=== PATIENT | female | born 2000 | race Caucasian/White ===

== ENCOUNTER → 2022-09-08 | Outpatient (CLI) | payer BC ==
--- NOTE | 2022-09-28 19:06 | P.CEMON ---
7 day event monitor shows Sinus mechanism with IL interval of the upper limits of normal Sinus tachycardia with heart rates up to 170 beats a minute Patient complained of a variety of symptoms including palpitations dizziness chest pain and lightheadedness No arrhythmias noted
== END | disposition home or self-care (01) ==
LOC: RADECHMAIN 07:55
PROVIDERS: ATTEND Family Medicine
DX: R00.0 Tachycardia, unspecified (principal); R00.2 Palpitations; R42 Dizziness and giddiness; R07.9 Chest pain, unspecified
CPT/HCPCS: 93270

== ENCOUNTER → 2022-11-24 | Outpatient (CLI) | payer OTHER ==
[2022-11-24 21:46] LABS: Basophils # (A) 0.01 X 10*3/uL (0.00-0.10); Basophils % (A) 0.2 %; Eosinophils # (A) 0.11 X 10*3/uL (0.04-0.35); Eosinophils % (A) 1.8 %; HCT 43.8 % (37.2-46.3); HGB 14.6 d/dL (12.0-15.0); Lymphocytes # (A) 1.34 X 10*3/uL (0.90-5.00); Lymphocytes % (A) 21.5 %; MCH 31.3 pg (27.0-32.0); MCHC 33.3 d/dL (32.0-37.0); MCV 93.8 FL (80.0-97.0); Mean Platelet Volume 11.1 FL (9.5-12.2); Monocytes # (A) 0.37 X 10*3/uL (0.20-1.00); Monocytes % (A) 5.9 %; NRBC Per 100 WBC 0 X 10*3/uL (0.00-0.01); Neutrophils # (A) 4.37 X 10*3/uL (1.80-7.70); Neutrophils % (A) 70.3 %; Platelet Count 208 X 10*3/uL (140-440); RBC 4.67 X 10*6/uL (4.10-5.20); RDW 11.7 % (11.5-14.5); WBC 6.22 X 10*3/uL (4.50-10.00)
[2022-11-24 22:14] LABS: ALT 12 U/L (8-44); AST 15 U/L (13-35); Albumin 4.9 d/dL (3.8-4.9); Albumin/Globulin Ratio 2.13 Ratio (1.60-3.17); Alkaline Phosphatase 51 U/L (41-126); BUN/Creat Ratio 19.14 Ratio (12.00-20.00); Blood Urea Nitrogen 13.4 mg/dL (9.0-27.0); Calcium 9.7 mg/dL (8.7-10.3); Carbon Dioxide 24.9 mmol/L (21.6-31.8); Chloride 103 mmol/L (96-109); Chol/HDL Ratio 3.03 Ratio; Globulin 2.3 d/dL (1.6-3.3); Glucose 88 mg/dL (70-110); LDL Cholesterol,Calculated 86.1 mg/dL (0.0-131.0); Potassium 4.1 mmol/L (3.5-5.5); Rheumatoid Factor, Qnt <15 IU/mL (0-15); Sodium 140 mmol/L (135-145); T4, Free (Free Thyroxine) 1.53 ng/dL (0.80-1.80); Total Bilirubin 0.3 mg/dL (0.3-1.2); Total Protein 7.2 d/dL (6.2-8.2); VLDL Calculation 19.04 mg/dL (5.00-40.00)
[2022-11-24 22:49] LABS: Erythrocyte Sedimentation Rate 6 mm/Hr (0-20)
[2022-11-25 01:00] LABS: Anti-DNA, DS unit <1.0 IU/mL; Anti-Smith Ab Interp Negative (Negative); DNA Double-Stranded Negative (Negative); Gliadin AB IgG, Deaminated Negative (Negative); Gliadin AB IgG, Unit <0.4 U/mL
[2022-11-25 01:30] LABS: Cyclic Citrull Pep IgG Unit <1.5 U/mL (<=3.9); Cyclic Citrullinated Pep IgG Negative
== END | disposition home or self-care (01) ==
LOC: LABWHC1 11:48
PROVIDERS: ATTEND Internal Medicine
DX: Z13.220 Encounter for screening for lipoid disorders (principal); I95.89 Other hypotension; M25.50 Pain in unspecified joint; R19.4 Change in bowel habit; E55.9 Vitamin D deficiency, unspecified
CPT/HCPCS: 36415; 80053; 80061; 82024; 82306; 82533; 83516; 84439; 84443; 84481; 85025; 85652; 86200; 86225; 86235; 86431